=== PATIENT | male | born 1960 | race Caucasian/White ===

== ENCOUNTER 2017-03-29 21:11 | Emergency (ER) | payer OTHER ==
[~2017-03-29] VITALS: Ht 167.6 cm; Wt 74.8 kg
--- NOTE | ~2017-03-29 | EKG ---
[address] [address] ELECTROCARDIOGRAM REPORT Name: MANEBLANKATWYLA DAREN Room #: DEP Jesenia#: [id number] Admission: 03/29/17 Attend Phys: Discharge: 03/29/17 Date of : 62 Report #: [id number] THIS REPORT FOR: //name// [facility] ED Test Date: 2017-03-29 Test Time: 21:21:43 Pat Name: TWYLA HAWLEY Department: Room: Gender: M Consulting Database Administrator: PAULIE : 1960 Requested By: Tomas Yarbrough Order Number: [id number] MD: Elpidio Peña Measurements Intervals [place] Rate: 67 P: 69 WA: 147 QRS: 0 QRSD: 99 T: 35 QT: 408 QTc: 431 Interpretive Statements Sinus rhythm Probable left atrial enlargement Artifact in lead(s) I,II,aVR,aVL,aVF,V1 Compared to ECG 09/27/2014 08:10:10 Sinus bradycardia no longer present Electronically Signed On 03-30-2017 8:11:46 FLOODPLAIN MANAGER by Elpidio Peña [email or web address] <ELECTRONICALLY SIGNED> By: Elpidio Peña MD 03/30/17810 20 20 Elpidio Peña MD /EPI
[~2017-03-29 21:11] MED LIST: CATAPRES-TTS 20.2 MG TD; CATAPRES0.2 MG PO; CLONIDINE HCL0.2 M2 PO; DIAZEPAM 10 MG10 M1 PO; HYDROCODONE-AC120 ML PO; IBUPROFEN 400400 M2 PO; LOPRESSOR25 PO; METHADONE HCL 110 MG PO; METHADONE HCL40 MG PO; NEURONTIN 300M300 M2 PO; PERCOCET 10-321 EACH PO; PERCOCET 7.5-31 EACH PO; PREDNISONE 20 M20 MG PO; UNICOMPLEX M TA1 TA1 PO
[2017-03-29] MEDS ORDERED: OXYCODONE HCL15 MG (21:34)
[2017-03-29 21:35] LABS: HEMATOCRIT 42.7 % (42.0-52.0); HEMOGLOBIN 14.5 gm/dL (14.0-18.0); MCH 31.6 pg (26.0-34.0); MCHC 33.9 g/dL (28.0-37.0); MCV 93.2 fL (80.0-100.0); RBC 4.58 mil/uL (4.50-6.00); RDW 13.9 % (10.5-14.5); WBC 9.7 thou/uL (4.0-11.0)
[2017-03-29] MEDS ORDERED: VENTOLIN HFA 1818 GM (21:35)
[2017-03-29 21:46] LABS: ANION GAP 9 mmol/L (7-16); BUN 21 mg/dL (7-18); CALCIUM 8.8 mg/dL (8.5-10.1); CHLORIDE 104 mmol/L (98-107); CO2 28 mmol/L (21-32); CREATININE 1.2 mg/dL (0.7-1.3); GLUCOSE 86 mg/dL (74-106); POTASSIUM 3.8 mmol/L (3.5-5.1); SODIUM 141 mmol/L (136-145)
[2017-03-29 21:56] LABS: TROPONIN-I < 0.04 ng/mL (<0.06)
[2017-03-29 23:39] VITALS: BP 138/75
== END 2017-03-29 23:42 | disposition home or self-care (01) ==
LOC: ER 21:11
PROVIDERS: Emergency Medicine
DX: R07.89 Other chest pain (principal); F17.210 Nicotine dependence, cigarettes, uncomplicated; J44.9 Chronic obstructive pulmonary disease, unspecified; I10 Essential (primary) hypertension; Z88.5 Allergy status to narcotic agent; Z86.73 Personal history of transient ischemic attack (TIA), and cerebral infarction without residual deficits

== ENCOUNTER 2017-05-19 12:08 | Inpatient (IN) | payer OTHER ==
[~2017-05-19] VITALS: Ht 170.2 cm; Wt 76.3 kg
--- NOTE | ~2017-05-19 | HC ---
[facility] [place] [address] CONSULTATION Name: MARLEENTWYLA MERCEDES Room #: 402-P [facility] IN M.R.#: [id number] Admission: 05/19/17 Attend Phys: Guillermo Valladares MD Discharge: 05/21/17 Date of : 62 Report #: [id number] THIS REPORT FOR: //name// CC: Tomas Valladares DATE OF SERVICE: 05/19/2017 REASON FOR CONSULTATION: Left pelvis fracture. HISTORY OF PRESENT ILLNESS: The patient is a 57-year-old male who was going down the steps at his home when handrail broke and he fell down approximately 17 steps. He said he had significant left-sided pelvis pain, has been unable to bear weight on his left lower extremity since then. He denied loss of consciousness. Does not report any other extremity complaints at this time. REVIEW OF SYSTEMS: MUSCULOSKELETAL: Denies any other extremity complaints, see HPI. NEUROLOGIC: Denies numbness or tingling in any extremities. PAST MEDICAL HISTORY: Significant for TIA in 2006, chronic right hip pain. 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 PAST SURGICAL HISTORY: C6-C7 disk fusion. He has had surgery for right avascular necrosis of the hip. He has had a left rotator cuff repair. MEDICATIONS: Include methadone, oxycodone, albuterol, diazepam, clonidine, multivitamin and ibuprofen. ALLERGIES: INCLUDE CODEINE. SOCIAL HISTORY: He works as selling cars. He is . Smokes cigarettes, drinks approximately 2 alcoholic drinks a week. LABORATORY STUDIES: Done on 05/19/2017 showed white blood cell count 7.2, hemoglobin 15.3, hematocrit 44.4, platelet count 126. Chemistry is grossly normal. PHYSICAL EXAMINATION: GENERAL: The patient is alert and oriented, interacts appropriately, well-developed, well-nourished male who converses well. His is at his bedside. VITAL SIGNS: Most recent vital signs show temperature of 37.6, heart rate 72, respiratory rate 18, blood pressure 155/84, pulse oximetry is 94% on room air. EXTREMITIES: Examination of his bilateral upper extremities, skin is clean, dry [facility] [address] [place] [address] CONSULTATION Name: TWYLA HAWLEY Room #: 402-P [facility] IN .R.#: [id number] Admission: 05/19/17 Attend Phys: Guillermo Valladares MD Discharge: 05/21/17 Date of : 62 Report #: [id number] and intact. He has brisk capillary refill. Sensation is intact to light touch throughout. He has functional range of motion of the bilateral shoulders, elbows, forearms, wrists and hands. He is able to make full fist, full extension of the fingers. There is no tenderness to palpation to the bilateral sternum and clavicles, bilateral shoulders, arms, elbows, forearms, wrists and hands. Bilateral lower extremity exam, sensation is intact to light touch throughout. He has brisk capillary refill. The skin is clean, dry and intact. He has 2+ dorsalis pedis pulses bilaterally. EHL, FHL, dorsiflexion and plantar flexion are intact. He has no tenderness to palpation throughout the bilateral thighs, knees, legs, ankles, or feet. There is no pain with range of motion of bilateral hips, knees, ankles or feet. He does have some mild tenderness at the left greater trochanter. Mild tenderness in the anterior pelvis and mild left-sided posterior sacral tenderness. There is no lumbar tenderness. RADIOGRAPHS: CT scan essentially showed nondisplaced, barely visible left anterior superior pubic rami fractures. IMPRESSION AND PLAN: Left superior and inferior pubic rami fractures that are nondisplaced. I discussed I would not recommend surgical treatment. I would recommend he be evaluated by physical therapy. He can be weightbearing as tolerated. We discussed the importance of maintaining an upright position as much as possible during the day to avoid pulmonary and skin complications. I will also consult social work for possible needs at home. Questions were encouraged and answered to the best of my ability. He can follow up with me or one of my [facility] partners in 1-2 weeks. <ELECTRONICALLY SIGNED> By: Zabrina Perez MD 05/30/17 1117 [id number] 1846 Zabrina Perez MD /nt
[~2017-05-19 12:08] MED LIST changes: +OXYCODONE HCL15 MG; +VENTOLIN HFA 1818 GM
[2017-05-19 12:14] VITALS: BP 167/124
[2017-05-19 13:06] LABS: HEMATOCRIT 44.4 % (42.0-52.0); HEMOGLOBIN 15.3 gm/dL (14.0-18.0); MCHC 34.5 g/dL (28.0-37.0); MCV 92.7 fL (80.0-100.0); RBC 4.8 mil/uL (4.50-6.00); RDW 14.1 % (10.5-14.5); WBC 7.2 thou/uL (4.0-11.0)
[2017-05-19 13:16] LABS: CALCIUM 9.4 mg/dL (8.5-10.1); POTASSIUM 4.3 mmol/L (3.5-5.1)
[2017-05-19 15:05] VITALS: BP 166/118
[2017-05-19 15:30] VITALS: BP 155/84; BP 166/118
[2017-05-19 18:40] LABS: HEMATOCRIT 42.9 % (42.0-52.0); HEMOGLOBIN 14.8 gm/dL (14.0-18.0)
[2017-05-19 19:28] VITALS: BP 140/93
[2017-05-20 00:24] VITALS: BP 167/100
[2017-05-20 04:09] LABS: CALCIUM 9.1 mg/dL (8.5-10.1); CREATININE 0.9 mg/dL (0.7-1.3); POTASSIUM 3.9 mmol/L (3.5-5.1)
[2017-05-20 04:32] VITALS: BP 155/82
[2017-05-20 05:33] LABS: URINE BILIRUBIN NEGATIVE (Negative); URINE BLOOD TRACE (Negative); URINE CLARITY CLEAR; URINE COLOR YELLOW; URINE GLUCOSE-RANDOM* NEGATIVE (Negative); URINE KETONES NEGATIVE (Negative); URINE LEUKOCYTES-REFLEX NEGATIVE (Negative); URINE NITRITE-REFLEX NEGATIVE (Negative); URINE PROTEIN (DIPSTICK) NEGATIVE (Negative); URINE SPECIFIC GRAVITY <= 1.005 (1.005-1.035); URINE UROBILINOGEN 0.2 E.U./dl (0.2-1.0)
[2017-05-20 05:39] LABS: HEMATOCRIT 42.6 % (42.0-52.0); HEMOGLOBIN 14.5 gm/dL (14.0-18.0); MCH 31.6 pg (26.0-34.0); MCV 92.9 fL (80.0-100.0); RBC 4.59 mil/uL (4.50-6.00); RDW 14.5 % (10.5-14.5); WBC 7.8 thou/uL (4.0-11.0)
[2017-05-20 08:08] VITALS: BP 165/99
[2017-05-20 16:11] VITALS: BP 129/72
[2017-05-20 20:00] VITALS: BP 162/72
[2017-05-21 04:12] VITALS: BP 169/94
[2017-05-21 07:15] VITALS: BP 166/89
[2017-05-21] MEDS ORDERED: OXYCODONE HCL30 MG PO (10:48)
[2017-05-21 11:45] VITALS: BP 166/89
== END 2017-05-21 14:56 | disposition home or self-care (01) | DRG 535 ==
LOC: ER 12:08 → EROBS 14:24 → 4N 15:20
PROVIDERS: Hospitalist; Nurse Practitioner Acute Care; Physician Assistant
DX: S32.592A Other specified fracture of left pubis, initial encounter for closed fracture (principal); S32.402A Unspecified fracture of left acetabulum, initial encounter for closed fracture; W10.8XXA Fall (on) (from) other stairs and steps, initial encounter; G89.29 Other chronic pain; J44.9 Chronic obstructive pulmonary disease, unspecified; I10 Essential (primary) hypertension; F41.9 Anxiety disorder, unspecified; Z79.899 Other long term (current) drug therapy; Z98.1 Arthrodesis status; Y93.89 Activity, other specified; Y92.89 Other specified places as the place of occurrence of the external cause; Y99.8 Other external cause status; Z86.73 Personal history of transient ischemic attack (TIA), and cerebral infarction without residual deficits; Z88.5 Allergy status to narcotic agent
CPT/HCPCS: 10790

== ENCOUNTER 2017-07-27 12:24 | Emergency (ER) | payer OTHER ==
[~2017-07-27] VITALS: Ht 170.2 cm; Wt 76.2 kg
[~2017-07-27 12:24] MED LIST changes: +OXYCODONE HCL30 MG PO
[2017-07-27] MEDS ORDERED: OXYCODONE HCL15 MG PO (12:30)
[2017-07-27] MEDS ORDERED: NORFLEX100 MG PO (13:56)
[2017-07-27] MEDS ORDERED: MEDROLDOSEPACK PO (13:56)
[2017-07-27] MEDS ORDERED: CELEBREX 200 M200 M1 PO (13:56)
== END 2017-07-27 14:27 | disposition home or self-care (01) ==
LOC: ER 12:24
DX: G57.02 Lesion of sciatic nerve, left lower limb (principal); G89.29 Other chronic pain; M25.551 Pain in right hip; J44.9 Chronic obstructive pulmonary disease, unspecified; I10 Essential (primary) hypertension; F41.9 Anxiety disorder, unspecified; F17.210 Nicotine dependence, cigarettes, uncomplicated; Z86.73 Personal history of transient ischemic attack (TIA), and cerebral infarction without residual deficits; Z88.5 Allergy status to narcotic agent

== ENCOUNTER 2019-02-15 12:23 | Emergency (ER) | payer OTHER ==
[~2019-02-15] VITALS: Ht 170.2 cm; Wt 72.6 kg
[~2019-02-15 12:23] MED LIST changes: +CELEBREX 200 M200 M1 PO; +MEDROLDOSEPACK PO; +NORFLEX100 MG PO; +OXYCODONE HCL15 MG PO
[2019-02-15 12:48] LABS: URINE BLOOD 1+ (Negative); URINE CLARITY CLEAR; URINE COLOR YELLOW; URINE GLUCOSE-RANDOM* NEGATIVE (Negative); URINE KETONES TRACE (Negative); URINE LEUKOCYTES-REFLEX NEGATIVE (Negative); URINE NITRITE-REFLEX NEGATIVE (Negative); URINE PROTEIN (DIPSTICK) 1+ (Negative); URINE SPECIFIC GRAVITY 1.025 (1.005-1.035); URINE UROBILINOGEN 0.2 E.U./dl (0.2-1.0)
[2019-02-15 12:50] LABS: ICTOTEST (BILI CONFIRMATORY) Negative (Negative); URINE BILIRUBIN NEGATIVE (Negative)
[2019-02-15 12:58] LABS: BACTERIA-REFLEX 1-9 Few /HPF (None Seen); HYALINE CASTS 0-3 Few /LPF (None Seen); MUCUS 0-3 Light strn/LPF (None Seen); SQUAMOUS None Seen /LPF (0-3); URINE RBC 3-10 Few /HPF (0-2); URINE WBC-REFLEX None Seen /HPF (0-5)
[2019-02-15 12:59] LABS: CRYSTALS None Seen /LPF (None Seen)
[2019-02-15 13:27] LABS: CALCIUM 9.8 mg/dL (8.5-10.1); CREATININE 1.2 mg/dL (0.7-1.3); POTASSIUM 3.7 mmol/L (3.5-5.1)
[2019-02-15 13:33] LABS: TOTAL BILIRUBIN 0.6 mg/dL (<0.1-1.0)
[2019-02-15 14:05] LABS: ABSOLUTE NEUTROPHILS 4.5 thou/uL (1.4-8.2); BASOPHILS 0.5 % (0.0-2.0); EOSINOPHILS 1.5 % (0.0-3.0); HEMOGLOBIN 16.8 gm/dL (14.0-18.0); LYMPHOCYTES 15.2 % (24.0-44.0); MCH 33.1 pg (26.0-34.0); MCHC 33.6 g/dL (28.0-37.0); MCV 98.5 fL (80.0-100.0); MONOCYTES 5.5 % (1.0-8.0); PLATELET COUNT 124 thou/uL (150-400); POLYS 77.3 % (36.0-66.0); RBC 5.07 mil/uL (4.50-6.00); RDW 15.2 % (10.5-14.5); WBC 5.9 thou/uL (4.0-11.0)
[2019-02-15] MEDS ORDERED: BACTRIM DS TAB1 EAC1 PO (14:38)
[2019-02-15 15:17] VITALS: BP 156/97
--- NOTE | 2019-02-19 12:54 | EKG ---
[place] [address] [facility] [place] [address] ELECTROCARDIOGRAM REPORT Name: TWYLA HAWLEY Room #: DEP Jesenia#: [id number] Admission: 02/15/19 Attend Phys: Discharge: 02/15/19 Date of : 62 Report #: [id number] THIS REPORT FOR: //name// [facility] ED Test Date: 2019-02-15 Test Time: 12:43:17 Pat Name: TWYLA HAWLEY Department: Room: Gender: M Speech Assistant: KRISTOPHER : 1960 Requested By: Thea Galindo Order Number: [id number] MD: Elpidio Peña Measurements Intervals [place] Rate: 88 P: 52 VT: 132 QRS: 269 QRSD: 96 T: 44 QT: 373 QTc: 452 Interpretive Statements Sinus rhythm Left atrial enlargement LAD, consider left anterior fascicular block Compared to ECG 03/29/2017 21:21:43 No significant changes Electronically Signed On 02-19-2019 12:54:05 INTERACTIVE MEDIA PROJECT MANAGER by Elpidio Peña [email or web address] <ELECTRONICALLY SIGNED> By: Elpidio Peña MD 02/19/19 1254 1243 1243 Elpidio Peña MD /LUTHER
== END 2019-02-15 15:18 | disposition home or self-care (01) ==
LOC: ER 12:23
PROVIDERS: Nurse Practitioner
DX: N30.01 Acute cystitis with hematuria (principal); M54.5 Low back pain; I10 Essential (primary) hypertension; J44.9 Chronic obstructive pulmonary disease, unspecified; F41.9 Anxiety disorder, unspecified; F17.210 Nicotine dependence, cigarettes, uncomplicated; Z86.73 Personal history of transient ischemic attack (TIA), and cerebral infarction without residual deficits; Z88.6 Allergy status to analgesic agent

== ENCOUNTER 2020-12-29 21:39 | Emergency (ER) | payer OTHER ==
[~2020-12-29] VITALS: Ht 167.6 cm; Wt 72.6 kg
[~2020-12-29 21:39] MED LIST changes: +BACTRIM DS TAB1 EAC1 PO
[2020-12-29] MEDS ORDERED: DIAZEPAM 10 MG10 M2 PO (21:42)
[2020-12-29] MEDS ORDERED: ROXICODONE15 MG PO (21:43)
[2020-12-29] MEDS ORDERED: METHADONE HCL 110 M1 PO (21:43)
[2020-12-29] MEDS ORDERED: NORVASC5 MG PO (21:43)
[2020-12-29] MEDS ORDERED: ONDANSETRON HCL4 M2 PO (22:38)
[2020-12-29] MEDS ORDERED: NAPROSYN500 MG PO (22:38)
[2020-12-29 22:49] VITALS: BP 115/80
== END 2020-12-29 22:51 | disposition home or self-care (01) ==
LOC: ER 21:39
DX: R51.9 Headache, unspecified (principal); R11.0 Nausea; J44.9 Chronic obstructive pulmonary disease, unspecified; I10 Essential (primary) hypertension; F41.9 Anxiety disorder, unspecified; F17.210 Nicotine dependence, cigarettes, uncomplicated; Z79.899 Other long term (current) drug therapy; Z88.5 Allergy status to narcotic agent